=== PATIENT | female | born 1975 | race Two or more races ===

== ENCOUNTER 2020-03-03 16:05 | Emergency (ER) | payer SELFPAY ==
[~2020-03-03] VITALS: Ht 157.5 cm; Wt 59.9 kg
[2020-03-03 16:19] VITALS: BP 149/79
== END 2020-03-03 17:55 | disposition home or self-care (01) ==
LOC: ED 17:07
DX: J06.9 Acute upper respiratory infection, unspecified (principal); B34.9 Viral infection, unspecified
CPT/HCPCS: 71045; 99283